=== PATIENT | male | born 1960 ===

== ENCOUNTER 2021-06-27 | Outpatient (CLI) | payer OTHER, SELFPAY ==
[2021-07-07 14:16] LABS: Add Urine Microscopic? NO; Charge for UA Resulting for Rev
[2021-07-07 14:41] LABS: Specific Gravity, Urine 1.007 (1.005-1.030); Urine Appearance Clear (CLEAR); Urine Color Yellow (Yellow); pH Urine 5 (5-7)
[2021-07-07 14:43] LABS: Bilirubin Urine Neg (Negative); Blood Urine Neg (Negative); Glucose Urine UA Norm (Normal); Ketones Urine Negative (Negative); Leukocyte Esterase Urine Negative (Negative); Nitrate Urine Negative (Negative); Protein Urine Neg (Negative); Urobilinogen Urine Norm (Negative)
== END 2021-06-27 00:01 | disposition home or self-care (01) ==
LOC: LAB 12-06 12:43
PROVIDERS: Visit Provider Internal Medicine
DX: Z01.89 Encounter for other specified special examinations (principal)
CPT/HCPCS: 81003; 87086